=== PATIENT | female | born 1985 | race Caucasian/White ===

== ENCOUNTER 2017-09-08 10:25 | Emergency (ER) | payer MEDICAID, SELFPAY ==
[2017-09-08 10:25] VITALS: BP 112/85; PULSE 98; RESP 15; TEMP 36.9; BMI 37.1
[2017-09-08] MEDS: Diphth,Pertuss(Acell),Tet Vac 0.5 ML Vial IM (10:47)
[2017-09-08 10:57] LABS: Absolute Neutrophil Count 4.5 X10^3/uL (2.0-7.7); Basophil# 0.04 X10^3/uL; Basophil% 0.5 % (0-1); Eosinophil# 0.45 X10^3/uL; Eosinophils% 5.8 % (0-5); Hemoglobin 14.8 g/dl (12.0-15.0); Lymphocyte % 28.3 % (19-41); Mean Corp Hgb Conc 34.4 g/gl (32-36); Mean Corpuscular Hgb 30.1 pg (27.0-32.0); Mean Corpuscular Volume 87.4 fL (81-99); Mean Platelet Vol. 10.3 fl (6.2-12.0); Monocyte# 0.56 X10^3/uL; Monocyte% 7.2 % (0-10); Neutrophil # 4.51 X10^3/uL (2.7-7.7); Neutrophil % 58.1 % (47-70); POSITIVE COUNT NO; POSITIVE DIFFERENTIAL NO; POSITIVE MORPHOLOGY NO; Platelet Count 222 K/mm3 (150-450); RBC Distribution Width CV 12.8 % (11.6-14.6); RBC Distribution Width SD 40.7 fl (35.1-43.9); Red Blood Count 4.92 M/mm3 (4.2-5.4); White Blood Count 7.8 K/mm3 (4.4-11.0)
[2017-09-08 11:08] LABS: Amphetamine Urine VISTA NEGATIVE (<1000 ng/mL); Barbiturate Urine VISTA NEGATIVE (< 200 ng/mL); Benzodiazepine Urine VISTA POSITIVE (< 200 ng/mL); Cocaine Urine VISTA POSITIVE (< 300 ng/mL); Ecstacy Urine VISTA NEGATIVE (< 500 ng/mL); Methadone Urine VISTA NEGATIVE (< 300 ng/mL); PCP Urine VISTA NEGATIVE (< 25 ng/mL); THC Urine VISTA POSITIVE (< 50 ng/mL); Vista UDS pH Range 6
[2017-09-08 11:14] LABS: BUN 10 mg/dL (7-18); Creatinine, Serum 0.84 mg/dL (0.55-1.02); EST Glomerular Filtration Rate 85 mL/min (>60); Estimated Creatinine Clearance 91.68 ml/min; Glucose 83 mg/dL (74-106)
[2017-09-08 11:15] LABS: ALB/GLOB Ratio 0.9 RATIO (0.9-2.4); AST(SGOT) 14 U/L (15-37); Alanine Aminotransfer ALT/SGPT 29 U/L (13-56); Albumin, Serum 3.6 g/dL (3.2-5.0); Alkaline Phosphatase 100 U/L (45-117); Anion Gap 6 (5-15); BUN/Creat Ratio 11.9 RATIO (10-20); Calcium,Total 8.4 mg/dL (8.5-10.1); Chloride 110 mmol/L (98-107); Est Glom Filt Rate - Afr Amer 103 mL/min (>60); Globulin 3.9 g/dL (2.2-4.2); Potassium 3.7 mmol/L (3.5-5.1); Protein, Total 7.5 g/dL (6.4-8.2); Sodium Level 139 mmol/L (136-145)
[2017-09-08 11:17] LABS: Pregnancy, Serum, hCG Quali. NEGATIVE Negative (0-9 Nonpreg)
[2017-09-08 11:33] VITALS: BP 115/76; PULSE 87; RESP 16; O2SAT 99
--- NOTE | 2017-09-08 11:47 | ED.RN ---
PER CARLOS WITH CRISIS; AVIS CORBETT (NEW WITH CRISIS) WILL BE IN TO SEE THE PT
--- NOTE | 2017-09-08 11:50 | ED.RN ---
PER CARLOS SEVILLA AND AVIS WILL BOTH BE OVER TO EVAL PT; THEY ARE GOING TO THE [facility] AND THEN WILL BE IN TO SEE PT
[2017-09-08 12:09] VITALS: PULSE 83; RESP 14
--- NOTE | 2017-09-08 15:06 | ED.RN ---
PER EAGLE WITH CRISIS; ROEL WILL BE IN TO SEE PT
--- NOTE | 2017-09-08 15:08 | ED.RN ---
PT WORRIED ABOUT HER 9 YEAR OLD AND 11 YEAR OLD GETTING OUT OF SCHOOL AT 1545 TODAY. HER SPOUSE IS DEPENDENT ON A CO-WORKER TO DRIVE TO WORK EACH DAY IN [employer] AND SPOUSE UNABLE TO COME TO [place] TO HOME ECONOMICS EXPERT HIS CHILDREN. DR. CHRISTINE INFORMED OF SAME. THIS NURSE LEFT MESSAGE ON VOICE MAIL FOR CASE MANAGEMENT TO CALL IN REFERENCE TO SAME. PT REPORTED THAT IS SHE IS DISCHARGED HER COUSIN WILL PICK PT UP AND TAKE HER TO SCHOOL TO HOME ECONOMICS EXPERT HER CHILDREN. DR. CHRISTINE INFORMED OF THIS. DR. CHRISTINE THEN INFORMED THIS NURSE THAT PT WANTS TO STAY AND DETOX FROM DRUGS AND REQUESTED TO SPEAK WITH [facility]. PT THEN INFORMED THIS NURSE THAT SHE WANTS TO SPEAK TO [facility] AND THEN DISCHARGE TO HOME. DR. CHRISTINE IN AGREEMENT WITH PT SPEAKING TO [facility] AND THEN WILL DISCHARGE PT HOME.
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
--- NOTE | 2017-09-08 15:32 | ED.DEP ---
ED Disposition - Plan for ED Patient: Chief Complaint: Mental Health Instructions: ED Depression, ED Stress React, ED Laceration Small Superf No Sutr, ED Drug Abuse General Referrals: Care Physician,No Primary [Primary Care Provider] - George Howe MD [STAFF PHYSICIAN] -
[2017-09-08 15:44] VITALS: BP 160/101; PULSE 96; RESP 20; O2SAT 100
== END 2017-09-08 15:45 | disposition home or self-care (01) ==
PROVIDERS: Emergency Provider Emergency Medicine
DX: S51.812A Laceration without foreign body of left forearm, initial encounter (principal); X78.0XXA Intentional self-harm by sharp glass, initial encounter; Y93.9 Activity, unspecified; Y92.9 Unspecified place or not applicable; Y99.9 Unspecified external cause status; F14.10 Cocaine abuse, uncomplicated; F32.9 Major depressive disorder, single episode, unspecified; F41.9 Anxiety disorder, unspecified; Z72.0 Tobacco use; Z23 Encounter for immunization
CPT/HCPCS: 80053; 80307; 80320; 84703; 85025; 90471; 90715; 99283; G0480

== ENCOUNTER 2017-09-15 15:54 | Emergency (ER) | payer MEDICAID, SELFPAY ==
[2017-09-15 15:54] VITALS: BP 117/52; PULSE 95; RESP 18; TEMP 36.3; O2SAT 97; BMI 36.0
--- NOTE | 2017-09-15 16:21 | ED.VISSUMM ---
- ER Visit Summary Date of Service: 09/15/17 Chief Complaint: Sciatica History of Present Illness: The patient is a 32 F who presents with sciatica. She complains of aching pain from her right buttock all the way down her leg. She has had prior similar symptoms for the past roughly 15 years. Several years ago she was seeing pain management and has previously had epidural injections. She complains of similar symptoms although worse over the past 4 days. She also is beginning to have a little bit of pain on the left side although this is much less severe. She denies fevers abdominal pain urinary retention or fecal incontinence. She denies weakness. She is able to ambulate. She denies history of prior surgery for her back except epidural injections. Physical Examination: Afebrile vitals are stable Moist mucous membranes Heart regular rate and rhythm Lungs are clear Negative straight leg raise bilaterally easily palpable dorsalis pedis pulse on the right Brisk capillary refill 5 out of 5 dorsiflexion, plantarflexion, extensor hallucis longus Normal sensation to light touch Test Results: Not indicated Emergency Department Course and Treatment: She does appear uncomfortable. She will be given prescriptions for short course of [place] as well as a prednisone burst. She was instructed on signs and symptoms to monitor for and conditions under which to return to the emergency department. She was advised to follow-up as an outpatient. She was discharged. Treatment Plan: [] Disposition: Discharge Impression: Sciatica This note was generated with [employer] dictation software. It may contain incorrect words, spelling, and punctuation that were not noted in review of the chart prior to signing ED Disposition - Plan for ED Patient: Chief Complaint: Back Referrals: Care Physician,No Primary [Primary Care Provider] -
--- NOTE | 2017-09-15 16:26 | ED.DEP ---
ED Disposition - Plan for ED Patient: Chief Complaint: Back Prescriptions: Prednisone [Deltasone] 60 mg PO DAILY #15 tablet Naproxen [Naprosyn] 500 mg PO BID #20 tablet Referrals: Care Physician,No Primary [Primary Care Provider] -
== END 2017-09-15 17:09 | disposition home or self-care (01) ==
PROVIDERS: Emergency Provider Emergency Medicine
DX: M54.31 Sciatica, right side (principal); Z72.0 Tobacco use
CPT/HCPCS: 99283

== ENCOUNTER 2018-03-27 16:18 | Emergency (ER) | payer MEDICAID, SELFPAY ==
[2018-03-27 16:19] VITALS: BP 104/69; PULSE 118; RESP 14; TEMP 36.4; O2SAT 98; BMI 35.0
--- NOTE | 2018-03-27 16:51 | ED.VISSUMM ---
- ER Visit Summary Date of Service: 03/27/18 Chief Complaint: Acute on chronic sciatica History of Present Illness: The patient is a 32 F with known degenerative disc disease at L4-5?S1. Chronic history of sciatica and has had pain since October. Patient sees pain management and [place]. She states the pain is just worse today. She denies any bowel or bladder incontinence. She states it goes from her right lower back and buttock all the way down the back of her leg into her ankle and foot. This is typical for her. She denies any recent trauma. She is never had back surgery. She denies any fever. Physical Examination: Well-appearing young female. Vital signs are stable and afebrile. H EENT exam unremarkable. Neck nontender. Lungs clear to auscultation bilaterally. Heart regular rhythm rate about 110 no murmur. Abdomen soft and nontender. Normal bowel sounds. Patient is moving all 4 extremities. Upper extremities normal 5/5 traffic safety administrator strength and range of motion. Lower extremities have dorsi and plantar flexion intact. No cauda equina or saddle anesthesia. Normal range of motion in both lower extremities. She has normal medial thigh sensation. Back exam she has some right SI and more right para vertebral tenderness along the lower lumbar spine. There is no ecchymosis or bruising. There is no redness or warmth. Test Results: None Emergency Department Course and Treatment: Treated with IM Nubain and discharged to home. Treatment Plan: Discharge. Continue on her current medications. Follow-up with her pain management doctor. Disposition: Discharge Impression: Acute on chronic sciatica with known history of degenerative lumbar disc disease This note was generated with [employer] dictation software. It may contain incorrect words, spelling, and punctuation that were not noted in review of the chart prior to signing ED Disposition - Plan for ED Patient: Chief Complaint: Lower Extremity Injury Referrals: Care Physician,No Primary [Primary Care Provider] -
--- NOTE | 2018-03-27 16:53 | ED.DEP ---
ED Disposition - Plan for ED Patient: Disposition: Home or Assisted Living Chief Complaint: Lower Extremity Injury Instructions: ED Sciatica Additional Instructions: Call follow-up with your pain management doctor.
[2018-03-27 16:59] VITALS: BP 106/72; PULSE 68; RESP 18; O2SAT 98
[2018-03-27] MEDS: Nalbuphine 10 MG/ML Ampul IM (17:16)
== END 2018-03-27 17:34 | disposition home or self-care (01) ==
PROVIDERS: Emergency Provider Emergency Medicine
DX: M54.31 Sciatica, right side (principal); G89.29 Other chronic pain; M51.36 Other intervertebral disc degeneration, lumbar region; Z72.0 Tobacco use
CPT/HCPCS: 96372; 99283

== ENCOUNTER 2018-12-28 13:55 | Emergency (ER) | payer MEDICAID, SELFPAY ==
[2018-12-28 13:56] VITALS: BP 157/107; PULSE 109; RESP 27; TEMP 35.9; O2SAT 98; BMI 38.7
[2018-12-28 14:01] VITALS: BP 160/85; PULSE 95; RESP 18; O2SAT 98
[2018-12-28] MEDS: Ketorolac 15 MG/ML Vial IV (14:22)
--- NOTE | 2018-12-28 14:52 | ED.DCSUM_ITS ---
History of Present Illness Chief Complaint: Back Informant: Patient Onset: Month(s) Context: Sudden Onset Injury: - - No injury per patient Timing: Continuous, Waxes and wanes Quality: Burning Location: Lumbar, Left Leg, - - 3/4 dermatome Current Severity: Severe Maximum Severity: Severe Worsened by: improves with: Movement, Ambulation, Bending, Lifting Relieved by: Nothing Associated Symptoms: Numbness - Right lower extremity, Radiation to Left Leg, - - Patient has no bowel bladder dysfunction. She has no saddle paresthesia or anesthesia. She does have radicular pain L3-4 dermatome left lower extremity. She was able to ambulate the car. She was brought to the emergency room by her aunt. Narrative: Patient is a 33-year-old woman with history of herniated disc. Her MRI was reviewed. She has extrusion L3-4 canal with encroachment on the nerve root. There is degenerative changes noted as well. She presents because of worsening pain. There is no history of direct trauma, fall etc. Patient states she has had pain since October. With no bowel, bladder or neurologic deficit there is no indication for emergent reimaging. Patient denies fever, chills or night sweats. She denies weight gain or weight loss. There is no history of IV drug use. Prior similar symptoms: Yes Recent Illness/Hospitalization: No - Past Medical History (1) Lumbosacral radiculopathy at L3 Status: Acute Past Medical History - Allergies and Home Meds Allergies/Adverse Reactions: Allergies hydrocodone bitartrate [From Vicodin] Allergy (Verified 12/28/18 13:55) Hives latex Allergy (Verified 12/28/18 13:55) Rash morphine Allergy (Verified 12/28/18 13:55) Hives niacin Allergy (Verified 12/28/18 13:55) Hives Primary Care Physician: George Calzada [Primary Care Provider] - Prior records reviewed: Yes - [facility] my chart Surgical History: noncontributory Lives: With Family Smoking Status: Current every day smoker Alcohol: None Drugs: None Review of Systems General: Denies: Chills, Fever, Sweats Eyes: Denies: Visual changes - bilaterally, Diplopia ENT: Denies: Rhinorrhea, Sore throat Cardiovascular: Denies: Chest pain, Palpitations Respiratory: Denies: Dyspnea, Cough, Dyspnea on exertion Gastrointestinal: Denies: Abdominal pain, Nausea, Vomiting, Diarrhea, Constipation, Melena, Hematochezia Genitourinary: Denies: Dysuria, Hematuria, Frequency Musculoskeletal: Reports: Back pain, Extremity Pain. Denies: Myalgias, Arthralgias, Neck pain, Swelling, -, - Skin: Denies: Rash, Wounds Neurological: Denies: Headache, Weakness, Numbness Hematologic: Denies: Easy bruising, Easy bleeding Allergy: Denies: Uticaria, Swelling of the mouth Physical Exam Vital Signs/Narrative: Vital Signs Temp Pulse Resp BP Pulse Ox 12/28/18 14:01 95 18 160/85 H 98 12/28/18 13:56 96.7 F L 109 H 27 H 157/107 H 98 Inital Vital Signs reviewed: Yes General: Well nourished, Well developed, Obese Head: Normocephalic, Atraumatic Eyes: Perrl, EOMI. Negative for: Pale conjunctiva, Scleral icterus, - ENT: Moist mucous membranes, No rhinorrhea Neck: Supple, Nontender, No lymphadenopathy, No JVD Cardiovascular: Regular rhythm, No murmurs, Normal S1, Tachycardia Respiratory: No distress, CTA bilaterally, Chest nontender Abdomen: Soft, Nontender, Nondistended, Normal bowel sounds Rectal: - - Perianal sensation Back: Normal Inspection, Paraspinal Tenderness, Negative SLR - Right, Negative SLR - Left, - - Get a femoral stretch test on the left and right. Negative for: Nontender, Surgical Scar, Well-Healed, Spinal tenderness, CVA tenderness Extremeties: Nontender, No edema, Strong Pulses, Symmetric. Negative for: Tenderness Skin: Normal color, No rash, No Trauma. Negative for: Cyanosis, Diaphoresis, Jaundice Neuro: Alert, Oriented, Normal Strength, Normal Sensation, Normal DTR, Normal Gait, Normal Reflexes - Patella and ankle reflexes are 2+ and symmetric. Reflexes: Right Patellar, Right Achilles, Left Patellar, Left Achilles. Negative for: Right Clonus, Right Babinski, Left Clonus, Left Babinski Psychological: Depressed, Tearful Diagnostic/Tx/Re-eval - Medical Decision Making Initially patient was medicated with IV Toradol. After reviewing her MRI and having pain in L3-4 distribution where she has extrusion of the disc and encroachment of the L3 nerve root she was medicated with IV Valium and Dilaudid. She reports no reaction to Dilaudid. She has had reaction to morphine and hydrocodone. She is seen in pain management. She is scheduled for epidural injection. She had an epidural injection 5 weeks ago. Presently patient has no symptoms of cauda equina. MRI does not reveal concern for cauda equina. There is evidence of lateral extrusion with impingement of L3 nerve root on the left. Since she has no quadricep weakness reflexes are symmetric she does not have a surgical emergency. This is a pain management issue. Patient was reassessed at 1518. She is sitting in a much more comfortable position. She states the pain is eased off markedly. She is no longer tearful. ED Disposition - Plan for ED Patient: Disposition: Home or Assisted Living Diagnosis: Lumbosacral radiculopathy at L3 Instructions: BACK AND NECK PAIN, General Referrals: George Calzada [Primary Care Provider] - Keep Smita appointment Additional Instructions: If you are unable to stand because of my muscle weakness return to the emergency department immediately; otherwise, follow-up with Dr. Calzada your pain management doctor as scheduled.
[2018-12-28] MEDS: HYDROmorphone 0.5 MG/0.5 ML SYRINGE IV (15:07)
[2018-12-28 15:23] VITALS: BP 162/80; PULSE 80; RESP 14; O2SAT 98
[2018-12-28] MEDS: diazePAM 5 MG Tablet PO (15:26)
== END 2018-12-28 15:32 | disposition home or self-care (01) ==
PROVIDERS: Emergency Provider Emergency Medicine; Family Provider Anesthesiology Pain Medicine; PCP Anesthesiology Pain Medicine
DX: M51.16 Intervertebral disc disorders with radiculopathy, lumbar region (principal); Z88.5 Allergy status to narcotic agent; Z91.040 Latex allergy status; F17.200 Nicotine dependence, unspecified, uncomplicated
CPT/HCPCS: 96374; 96375; 99284; A4216

== ENCOUNTER 2020-06-25 12:28 | Emergency (ER) | payer MEDICAID, SELFPAY ==
[2020-06-25 12:29] VITALS: BP 138/85; PULSE 101; RESP 18; TEMP 35.3; O2SAT 95; BMI 36.8
[2020-06-25 12:47] LABS: Mucous, Urine 0 SEEN /hpf (<or=2+); Red Blood Cells-Urine 0 SEEN /hpf (0-5)
[2020-06-25 12:54] LABS: Color, Urine Yellow (Yellow); Glucose, Dipstick Normal (Normal); Leukocyte Esterase-Dipstick 100 /ul (Negative); Nitrite-Dipstick Positive (Negative); Occult Blood-Urine 50 /ul (Negative); Protein-Dipstick 30 mg/dl (Negative); Urine Bilirubin Dipstick Negative (Negative); Urine Clarity Clear (Clear); Urine Urobilinogen 1 mg/dl (Normal)
[2020-06-25 13:00] LABS: Ketone-Dipstick 150 mg/dl (Negative)
[2020-06-25 13:02] LABS: Bacteria 2+ /hpf (None Seen); Internal QC Validated? YES +Cl - CLEAR BKGD; Pregnancy, Urine Negative Negative; Record Kit Lot#,Urine Preg 42077; Squamous Epithelial Cells - UA 0-5 SEEN /hpf (5-10); White Blood Cells 5-10 SEEN /hpf (0-5)
--- NOTE | 2020-06-25 13:10 | ED.VIS.GEN ---
History of Present Illness Chief Complaint: Complaint Informant: Patient Onset: Days Context: Gradual Onset Narrative: Patient is a 35-year-old female with history of urinary tract infections presenting with concern for UTI. Patient states she is been having increased pressure of urination, frequency and right flank pain for the past 2 days. She took an at home UTI test which showed positive leukoesterase and nitrates. She had some associated nausea but no vomiting. No fever. Patient know she is on a keto diet. She also states that her period was abnormal because it would last for 3 days during the last 1. She does not think she is however. Patient has any blood in her urine. No other complaints at this time. She states she has not had any antibiotics for UTI in a couple years. She would like a primary care physician would like referral. Past Medical History - Allergies and Home Meds Allergies/Adverse Reactions: Allergies hydrocodone bitartrate [From Vicodin] Allergy (Verified 06/25/20 12:30) Hives latex Allergy (Verified 06/25/20 12:30) Rash morphine Allergy (Verified 06/25/20 12:30) Hives niacin Allergy (Verified 06/25/20 12:30) Hives Primary Care Physician: George Calzada MD [Primary Care Provider] - Past Medical History: None Surgical History: noncontributory Smoking Status: Current every day smoker Review of Systems General: Denies: Chills, Fever, Sweats Eyes: Denies: Visual changes - bilaterally, Diplopia ENT: Denies: Rhinorrhea, Sore throat Cardiovascular: Denies: Chest pain, Palpitations Respiratory: Denies: Dyspnea, Cough, Dyspnea on exertion Gastrointestinal: Reports: - - Right flank pain. Denies: Abdominal pain, Nausea, Vomiting, Diarrhea, Melena, Hematochezia Genitourinary: Reports: Dysuria, Frequency. Denies: Hematuria Musculoskeletal: Denies: Back pain, Extremity Pain Skin: Denies: Rash, Wounds Neurological: Denies: Headache, Weakness, Numbness Physical Exam Vital Signs/Narrative: Vital Signs Temp Pulse Resp BP Pulse Ox 06/25/20 12:29 95.5 F L 101 H 18 138/85 H 95 Inital Vital Signs reviewed: Yes General: Well nourished, Well developed, No Acute Distress Head: Normocephalic, Atraumatic Eyes: Perrl, EOMI ENT: Moist mucous membranes, No rhinorrhea Neck: Supple, Nontender Cardiovascular: Regular rate, Regular rhythm, No murmurs Respiratory: No distress, CTA bilaterally, Chest nontender Abdomen: Soft, Nontender, Nondistended, Normal bowel sounds. Negative for: Guarding, Rebound tenderness Back: Nontender, Normal Inspection. Negative for: CVA tenderness, Spinal tenderness Extremities: Nontender, No edema Skin: Normal color, No rash Neurological: Alert, Oriented x3, Cranial nerves II-XII grossly intact, Normal Strength, Normal Sensation Psychological: Normal affect, Normal Mood Diagnostic/Tx/Re-eval Laboratory Data 06/25/20 12:40 Urine Color Yellow Urine Clarity Clear Urine pH 6.0 Ur Specific [place] 1.020 Urine Protein 30 H Urine Glucose (UA) Normal Urine Ketones 150 H Urine Occult Blood 50 H Urine Nitrite Positive H Urine Bilirubin Negative Urine Urobilinogen 1 H Ur Leukocyte Esterase 100 H Urine RBC 0 SEEN Urine WBC 5-10 SEEN Ur Squamous Epith Cells 0-5 SEEN Urine Bacteria 2+ Urine Mucus 0 SEEN Urine Test Negative - Medical Decision Making Evaluate for 2 days of UTI symptoms. She is well-appearing. She is having flank pain and nausea so I will treat as presumptive pyelonephritis. She has no friend she is been taking at home. Patient is not appear dehydrated. I do not think lab work is indicated at this time. First dose of Keflex is given in the emergency room. Urine culture is sent. Patient given analgesic in the emergency room for her pain. Is referred to her primary care doctor for follow-up. Patient is counseled on signs and symptoms requiring return to the emergency room. Patient verbalizes agreement and understand this plan. Patient discharged home in stable and improved condition. ED Disposition - Plan for ED Patient: Disposition: Home or Assisted Living Diagnosis: UTI (urinary tract infection) Instructions: ED Bladder Infection, Female (Adult) Prescriptions: Cephalexin [Keflex] 500 mg PO Q12 #14 cap Transmission Status: Pending to [employer] [facility] [employer] #30 Referrals: George Calzada MD [Primary Care Provider] - Linh Bruce MD [STAFF PHYSICIAN] - Additional Instructions: Drink lots of fluid. Return the emergency room if you develop worsening symptoms such as fever, vomiting or severe pain. Alternate Tylenol and ibuprofen for discomfort
[2020-06-25] MEDS: Cephalexin 250 MG Capsule 500 MG PO (13:30)
[2020-06-25] MEDS: Ibuprofen 600 MG Tablet PO (13:30)
== END 2020-06-25 13:38 | disposition home or self-care (01) ==
PROVIDERS: Emergency Provider Emergency Medicine; PCP Anesthesiology Pain Medicine
DX: N39.0 Urinary tract infection, site not specified (principal); F17.200 Nicotine dependence, unspecified, uncomplicated; Z87.440 Personal history of urinary (tract) infections
CPT/HCPCS: 81001; 81025; 87086; 87088; 87186; 99283